=== PATIENT | female | born 1985 | race Caucasian/White ===

== ENCOUNTER 2018-10-20 15:23 | Emergency (ER) | payer OTHER ==
--- NOTE | 2018-10-20 15:28 | EDM.PDOCBH ---
ED HPI GENERAL MEDICAL PROBLEM - General Chief Complaint: Behavioral/Psych Stated Complaint: SUCIDAL Time Seen by Provider: 10/20/18 15:28 Source of Information: Reports: Patient, EMS, Police History Limitations: Reports: No Limitations - History of Present Illness INITIAL COMMENTS - FREE TEXT/NARRATIVE: HISTORY AND PHYSICAL: History of present illness: Patient is a 33-year-old female who is brought to the emergency room by EMS and accompanied by law enforcement. Prior to arrival the patient had got into an argument with her and had went into her medicine Had grabbed some old medications that were available. She took handfuls of BuSpar, Venlaflaxin, . Has been. He grabbed the medications from her hands, stopping her from ingesting. EMS was called for assistance. Upon arrival of law enforcement and EMS there was a note which indicated that the patient had intended to harm herself through overdose. Patient reports that she did want to commit suicide through overdose, "it would just be easier". She reports over the past several weeks she has had increased depression and thoughts of self-harm. Patient does have a past medical history of depression but states she stopped taking her prescribed medications over a year ago. She has never had any inpatient treatment or previous suicidal attempts/ideations. She denies any fever, chills, chest pain, shortness of breath or cough. Denies any abdominal pain, nausea, vomiting, diarrhea or constipation. Eating and drinking appropriately. Denies any visual or auditory hallucinations. She denies any alcohol or drug abuse. Review of systems: As per history of present illness and below otherwise all systems reviewed and negative. Past medical history: As per history of present illness and as reviewed below otherwise noncontributory. Surgical history: As per history of present illness and as reviewed below otherwise noncontributory. Social history: See social history for further information Family history: As per history of present illness and as reviewed below otherwise noncontributory. Physical exam: General: Well-developed and well-nourished 33-year-old female. Alert and oriented. Flat affect, tearful. Nontoxic appearing and in no acute distress. HEENT: Atraumatic, normocephalic, pupils equal and reactive bilaterally, negative for conjunctival pallor or scleral icterus, mucous membranes moist, throat clear, neck supple, nontender, trachea midline. No drooling or trismus noted. No meningeal signs Lungs: Clear to auscultation, breath sounds equal bilaterally, chest nontender. Heart: S1S2, regular rate and rhythm without overt murmur Abdomen: Soft, nondistended, nontender. Negative for masses or hepatosplenomegaly. Negative for costovertebral tenderness. Pelvis: Stable nontender. Genitourinary: Deferred. Rectal: Deferred. Skin: Intact, warm, dry. No lesions or rashes noted. Extremities: Atraumatic, negative for cords or calf pain. Neurovascular unremarkable. Neuro: Awake, alert, oriented. Cranial nerves II through XII unremarkable. Cerebellum unremarkable. Motor and sensory unremarkable throughout. Exam nonfocal. Notes: [facility] was consulted, they do not have any bed availability. Next closest facility, [facility] in [place] was contacted. Dr. Margy Bales is aware of this patient and agreed to accept this patient for inpatient treatment. A hold has been placed on this patient, although she is agreeable for treatment. Patient is cooperative with care. Routine lab work is pending. Lab results sent with EMS for [facility] personnel. Vitals stable. Patient offers no current complaints. Diagnostics: CBC, CMP, UA, urine , urine drug screen, alcohol level, acetaminophen, salicylate, TSH Therapeutics: None Prescription: None Impression: Suicidal ideation Plan: Transfer to [facility] in [place] via ground EMS for inpatient mental health treatment Definitive disposition and diagnosis as appropriate pending reevaluation and review of above. Onset: Today - Related Data Allergies Allergy/AdvReac Type Severity Reaction Status Date / Time Penicillins Allergy Anaphylactic Verified 10/20/18 15:25 Shock Home Meds: Home Meds . [No Known Home Meds] 10/20/18 [History] ED ROS GENERAL - Review of Systems Review Of Systems: ROS reveals no pertinent complaints other than HPI. ED EXAM, BEHAVIORAL HEALTH - Physical Exam Exam: See Below (See dictation) COURSE, BEHAVIORAL HEALTH COMP - Course Vital Signs: Last Vital Signs Temp 98.3 F 10/20/18 15:26 Pulse 132 H 10/20/18 15:26 Resp 20 10/20/18 15:26 BP 154/108 H 10/20/18 15:26 Pulse Ox 95 10/20/18 15:26 Orders, Labs, Meds: Active Orders 24 hr Category Date Time Status DRUG SCREEN, URINE [URCHEM] Stat Lab 10/20/18 15:38 Received HCG QUALITATIVE,URINE [URCHEM] Stat Lab 10/20/18 15:38 Received UA W/MICROSCOPIC [URIN] Stat Lab 10/20/18 15:38 Received Laboratory Tests 10/20/18 10/20/18 10/20/18 Range/Units 15:54 15:54 15:54 WBC 11.34 H (4.0-11.0) K/uL RBC 4.55 (4.30-5.90) M/uL Hgb 13.9 (12.0-16.0) g/dL Hct 41.6 (36.0-46.0) % MCV 91.4 (80.0-98.0) fL MCH 30.5 (27.0-32.0) pg MCHC 33.4 (31.0-37.0) g/dL RDW Std Deviation 42.6 (28.0-62.0) fl RDW Coeff of [place] 13 (11.0-15.0) % Plt Count 315 (150-400) K/uL MPV 10.50 (7.40-12.00) fL Neut % (Auto) 80.7 H (48.0-80.0) % Lymph % (Auto) 14.5 L (16.0-40.0) % [place] % (Auto) 4.7 (0.0-15.0) % Eos % (Auto) 0.0 (0.0-7.0) % Baso % (Auto) 0.1 (0.0-1.5) % Neut # (Auto) 9.2 H (1.4-5.7) K/uL Lymph # (Auto) 1.6 (0.6-2.4) K/uL [place] # (Auto) 0.5 (0.0-0.8) K/uL Eos # (Auto) 0.0 (0.0-0.7) K/uL Baso # (Auto) 0.0 (0.0-0.1) K/uL Nucleated RBC % 0.0 /100WBC Nucleated RBCs # 0 K/uL INR 1.04 Sodium 137 (136-145) mmol/L Potassium 3.5 (3.5-5.1) mmol/L Chloride 103 (98-107) mmol/L Carbon Dioxide 22.7 (21.0-32.0) mmol/L BUN 9 (7.0-18.0) mg/dL Creatinine 0.8 (0.6-1.0) mg/dL Est Cr Clr Drug Dosing 89.16 mL/min Estimated GFR (MDRD) > 60.0 ml/min Glucose 102 (74-106) mg/dL Calcium 9.9 (8.5-10.1) mg/dL Total Bilirubin 0.5 (0.2-1.0) mg/dL AST 1 L (15-37) IU/L ALT 61 (14-63) IU/L Alkaline Phosphatase 87 (46-116) U/L Total Protein 8.4 H (6.4-8.2) g/dL Albumin 4.1 (3.4-5.0) g/dL Globulin 4.3 H (2.6-4.0) g/dL Albumin/Globulin Ratio 1.0 (0.9-1.6) TSH 3rd Generation 0.69 (0.36-3.74) uIU/mL Salicylates 1.6 (0-20) mg/dL Acetaminophen 0.0 ug/mL Ethyl Alcohol 4 mg/dL Departure - Departure Time of Disposition: 15:50 Disposition: DC/Tfer to Psych Hosp/Unit 65 Clinical Impression: Suicidal ideation - Discharge Information Forms: ED Department Discharge - My Orders Last 24 Hours: My Active Orders 10/20/18 15:38 DRUG SCREEN, URINE [URCHEM] Stat HCG QUALITATIVE,URINE [URCHEM] Stat UA W/MICROSCOPIC [URIN] Stat - Assessment/Plan Last 24 Hours: My Active Orders 10/20/18 15:38 DRUG SCREEN, URINE [URCHEM] Stat HCG QUALITATIVE,URINE [URCHEM] Stat UA W/MICROSCOPIC [URIN] Stat
[2018-10-20 16:23] LABS: CHLORIDE,CL 103 mmol/L (98-107); SODIUM,NA 137 mmol/L (136-145)
[2018-10-20] MEDS ORDERED: Ondansetron 4 MG Tab.DIS PO ONE (16:38)
== END 2018-10-20 16:53 ==
LOC: MW.ED 15:23
DX: R45.851 Suicidal ideations (principal); Z88.0 Allergy status to penicillin
CPT/HCPCS: 36415; 80053; 80305; 81001; 81025; 84443; 85025; 85610; 99285; A9270; G0480